=== PATIENT | male | born 1980 | race Caucasian/White ===

== ENCOUNTER 2017-11-24 17:18 | Emergency (ER) | payer BC ==
[2017-11-24] MEDS ORDERED: Lidocaine 1% 20 ML MDV INJECT ONE (17:45)
[2017-11-24] MEDS ORDERED: Bacitracin/Neomycin/Polymyxin B Oint 0.9 GM U/D Packet TOP ONE (18:03)
--- NOTE | 2017-11-24 18:05 | EDM.PDOC ---
ED HPI GENERAL MEDICAL PROBLEM - General Chief Complaint: Upper Extremity Injury/Pain Stated Complaint: LACERATION Time Seen by Provider: 11/24/17 17:35 Source of Information: Reports: Patient History Limitations: Reports: No Limitations - History of Present Illness INITIAL COMMENTS - FREE TEXT/NARRATIVE: Patient presents with laceration to right thumb. 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 He does have good range of motion to his thumb. Good sensation. Last tetanus was 4 years ago. Onset: Today, Sudden Duration: Minutes: Location: Reports: Upper Extremity, Right Quality: Reports: Throbbing Severity: Mild Context: Reports: Trauma Associated Symptoms: Reports: No Other Symptoms Right 1-Thumb Pain Score (Numeric/FACES): 3 - Related Data Allergies Allergy/AdvReac Type Severity Reaction Status Date / Time No Known Allergies Allergy Verified 11/24/17 17:33 Home Meds: Home Meds . [No Known Home Meds] 11/24/17 [History] Past Medical History HEENT History: Reports: None Cardiovascular History: Reports: None Respiratory History: Reports: None Gastrointestinal History: Reports: None Genitourinary History: Reports: None Neurological History: Reports: None Psychiatric History: Reports: None Endocrine/Metabolic History: Reports: None Hematologic History: Reports: None Immunologic History: Reports: None Oncologic (Cancer) History: Reports: None Dermatologic History: Reports: None - Infectious Disease History Infectious Disease History: Reports: None - Past Surgical History Head Surgeries/Procedures: Reports: None HEENT Surgical History: Reports: None Cardiovascular Surgical History: Reports: None Respiratory Surgical History: Reports: None GI Surgical History: Reports: None Male Surgical History: Reports: None Endocrine Surgical History: Reports: None Neurological Surgical History: Reports: None Musculoskeletal Surgical History: Reports: Other (See Below) Other Musculoskeletal Surgeries/Procedures:: R elbow compound fracture repair Oncologic Surgical History: Reports: None Social & Family History - Tobacco Use Smoking Status *Q: Never Smoker Second Hand Smoke Exposure: No - Caffeine Use Caffeine Use: Reports: None - Alcohol Use Number of Drinks Per Day: 1 Review of Systems - Review of Systems Review Of Systems: ROS reveals no pertinent complaints other than HPI. ED EXAM, GENERAL - Physical Exam Exam: See Below Exam Limited By: No Limitations General Appearance: Alert, WD/WN, No Apparent Distress Extremities: Normal Range of Motion, Normal Capillary Refill Neurological: Alert, Oriented Skin Exam: Wound/Incision ED TRAUMA EXTREMITY PROCEDURES - Laceration/Wound Repair Right Digit - 1st (Thumb) Lac/Wound Length In cm: 1.5 Appearance: Superficial, Linear Distal NVT: Neuro & Vascular Intact Anesthetic Type: Local Local Anesthesia - Lidocaine (Xylocaine): 1% Plain Local Anesthetic Volume: 4cc Skin Prep: Other (williams-clens) Exploration/Debridement/Repair: Wound Explored, Explored to Base Closed With: Sutures Suture Size: 4-0 # of Sutures: 4 Suture Type: Nylon, Interrupted, Simple Sterile Dressing Applied: Nurse Tetanus Status Addressed: Yes Complications: No Course - Vital Signs Last Recorded V/S: Last Vital Signs Temp 96.3 F 11/24/17 17:28 Pulse 87 11/24/17 17:28 Resp 18 11/24/17 17:28 BP 134/88 11/24/17 17:28 Pulse Ox 100 11/24/17 17:28 - Orders/Labs/Meds Meds: Medications Discontinued Medications Generic Name Dose Route Start Last Admin Trade Name Alina PRN Reason Stop Dose Admin Lidocaine HCl 20 ml 11/24/17 17:45 Xylocaine 1% INJECT 11/24/17 17:46 ONETIME ONE Neomycin/Polymyxin/Bacitracin 1 each 11/24/17 18:03 Triple Antibiotic Oint TOP 11/24/17 18:04 ONETIME ONE Departure - Departure Time of Disposition: 18:03 Disposition: Home, Self-Care 01 Condition: Good Clinical Impression: Laceration of thumb Qualifiers: Encounter type: initial encounter Damage to nail status: without damage Foreign body presence: without foreign body Laterality: right Qualified Code(s) : S61.011A - Laceration without foreign body of right thumb without damage to nail, initial encounter - Discharge Information *PRESCRIPTION DRUG MONITORING PROGRAM REVIEWED*: No *COPY OF PRESCRIPTION DRUG MONITORING REPORT IN PATIENT MIKE: No Forms: ED Department Discharge Additional Instructions: 1. Keep wound clean and dry 2. Triple antibiotic ointment daily for 3 days 3. Keep covered while at work 4. Sutures out in 10 days 5. Wound care instructions 6. Call with any concerns.
== END 2017-11-24 18:14 | disposition home or self-care (01) ==
LOC: CC.ED 17:18
DX: S61.011A Laceration without foreign body of right thumb without damage to nail, initial encounter (principal); W22.8XXA Striking against or struck by other objects, initial encounter
CPT/HCPCS: 12001; 99282